=== PATIENT | male | born 1950 | race Caucasian/White ===

== ENCOUNTER → 2016-07-12 | Outpatient (CLI) | payer OTHER, BC ==
[2016-07-12 13:48] LABS: ESTIMATED AVERAGE GLUCOSE 151 mg/dl; HA1C FLAG Normal (Normal)
[2016-07-12 14:16] LABS: ALT/SGPT 28 U/L (12-78); BLOOD UREA NITROGEN 19 mg/dl (7-18); BUN/CREATININE RATIO 13.8 (10-20); CALCIUM 9.4 mg/dl (8.5-10.1); CARBON DIOXIDE 27 mmol/L (21-32); CHLORIDE 104 mmol/L (98-107); CHOLESTEROL 129 mg/dl (0-200); GLUCOSE 135 mg/dl (70-99); POTASSIUM 4.9 mmol/L (3.5-5.1); SODIUM 140 mmol/L (136-145); TRIGLYCERIDES 155 mg/dl (0-150); VERY LOW DENSITY LIPOPROT CALC 31 mg/dl
[2016-07-12 14:27] LABS: CHOLESTEROL/HDL RATIO 3.4; HDL CHOLESTEROL 38 mg/dl; THYROID STIMULATING HORMONE 0.946 uIu/ml (0.300-4.500)
[2016-07-12 14:30] LABS: RATIO 18.6 mcg/mg (0-30.0)
== END | disposition home or self-care (01) ==
LOC: C.LABMFLN 13:23
PROVIDERS: ATTEND Family Medicine
DX: E78.5 Hyperlipidemia, unspecified (principal); E11.9 Type 2 diabetes mellitus without complications; I10 Essential (primary) hypertension

== ENCOUNTER → 2017-07-03 | Outpatient (CLI) | payer OTHER, BC ==
[2017-07-03 13:22] LABS: HEMOGLOBIN A1C 7.6 % (4.5-5.6)
[2017-07-03 13:28] LABS: ALT/SGPT 37 U/L (12-78); BLOOD UREA NITROGEN 17 mg/dl (7-18); CALCIUM 9.4 mg/dl (8.5-10.1); CARBON DIOXIDE 31 mmol/L (21-32); CREATININE 1.56 mg/dl (0.60-1.40); GLUCOSE 149 mg/dl (70-99); POTASSIUM 5.9 mmol/L (3.5-5.1); SODIUM 134 mmol/L (136-145)
[2017-07-03 13:35] LABS: CREATININE RANDOM URINE 59.5 mg/dl
[2017-07-03 13:39] LABS: CHOLESTEROL 124 mg/dl (0-200); LDL CHOLESTEROL (DIRECT) 85 mg/dl
== END | disposition home or self-care (01) ==
LOC: C.LABMFLN 09:26
PROVIDERS: ATTEND Family Medicine
DX: E78.5 Hyperlipidemia, unspecified (principal); E11.9 Type 2 diabetes mellitus without complications; I10 Essential (primary) hypertension

== ENCOUNTER → 2017-07-14 | Outpatient (CLI) | payer OTHER, BC | END | disposition home or self-care (01) | LOC: C.LABMFLN 14:34 | PROVIDERS: ATTEND Family Medicine | DX: E87.5 Hyperkalemia (principal) ==

== ENCOUNTER → 2018-01-22 | Outpatient (CLI) | payer OTHER, BC ==
[2018-01-22 18:04] LABS: ALBUMIN 3.1 gm/dl (3.4-5.0); ALKALINE PHOSPHATASE 59 U/L (45-117); ALT/SGPT 28 U/L (12-78); AST/SGOT 44 U/L (15-37); BLOOD UREA NITROGEN 21 mg/dl (7-18); CARBON DIOXIDE 27 mmol/L (21-32); CREATININE 1.61 mg/dl (0.60-1.40); GLUCOSE 249 mg/dl (70-99); POTASSIUM 3.4 mmol/L (3.5-5.1); SODIUM 127 mmol/L (136-145); TOTAL PROTEIN 8.3 gm/dl (6.4-8.2)
[2018-01-22 18:49] LABS: HEMATOCRIT 43.5 % (42-52); HEMOGLOBIN 15.4 g/dL (14.0-18.0); MEAN CELL VOLUME 90.2 fL (80-100); MEAN CORPUSCULAR HGB CONC 35.4 g/dl (32-36); MEAN PLATELET VOLUME 13.8 fL (7.4-10.4); PLATELET COUNT 101 K/uL (130-400); RED CELL DISTRIBUTION WIDTH CV 11.8 % (11.5-14.5); RED CELL DISTRIBUTION WIDTH SD 39.2 fL (36.4-46.3); WHITE BLOOD COUNT 9.69 K/uL (4.8-10.8)
[2018-01-22 19:50] LABS: BASO % 0.1 %; BASO ABS # 0.01 K/uL (0-0.2); IG# 0.02 K/uL (0.00-0.02); LYMPH % 9.3 %; MONO % 9.2 %; MONO ABS # 0.89 K/uL (0.11-0.59); NEUT % 81.2 %; NEUT ABS # 7.87 K/uL (1.4-6.5)
== END | disposition home or self-care (01) ==
LOC: C.LABMFLN 13:55
PROVIDERS: ATTEND Family Medicine
DX: M25.50 Pain in unspecified joint (principal); R50.9 Fever, unspecified; N41.0 Acute prostatitis